=== PATIENT | male | born 1945 | race Caucasian/White ===

== ENCOUNTER 2017-05-01 11:35 | Inpatient (IN) | payer OTHER ==
[~2017-05-01] VITALS: Ht 157.5 cm; Wt 83.1 kg
[2017-05-01 11:53] VITALS: BP 138/77
[2017-05-01] MEDS ORDERED: PANTOPRAZOLE 40 MG INJ VIAL IVP ONE (12:40)
[2017-05-01] MEDS ORDERED: MONT10TA35 PO (12:44)
[2017-05-01] MEDS ORDERED: GABA300C PO (12:44)
[2017-05-01] MEDS ORDERED: FERR325E14 PO (12:44)
[2017-05-01] MEDS ORDERED: LISI-420 PO (12:44)
[2017-05-01] MEDS ORDERED: SIMV20TA1 PO (12:44)
[2017-05-01] MEDS ORDERED: CETI-32 PO (12:44)
[2017-05-01] MEDS ORDERED: ORE25 PO (12:44)
[2017-05-01] MEDS ORDERED: VOL25 PO (12:44)
[2017-05-01] MEDS ORDERED: SITA25TA3 PO (12:44)
[2017-05-01] MEDS ORDERED: DOXA2TAB1 PO (12:44)
[2017-05-01] MEDS ORDERED: ASPI81CT89 PO (12:44)
[2017-05-01] MEDS ORDERED: SUCR1TAB35 PO (12:44)
[2017-05-01] MEDS ORDERED: METF1000 PO (12:44)
[2017-05-01] MEDS ORDERED: PHEN-1438 PO (12:44)
[2017-05-01] MEDS ORDERED: ATEN50TA8 PO (12:44)
--- NOTE | 2017-05-01 12:52 | NUR ---
PT COMES IN WITH C/O BLACK STOOLS X1 WEEK; SENT BY PMD FOR GI BLEEDING, HGB 8.1 ABD SOFT, NT TO TOUCH. DENIES FEVERS/CHILLS, NO ABD PAIN. REG BM, DENIES DYSURIA. HX HTN, DM, HIGH CHOLESTEROL
[2017-05-01 13:15] LABS: BASOPHILS # (AUTO) 0.1 K/uL (0.00-0.22); BASOPHILS % (AUTO) 2.6 % (0.0-2.0); EOSINOPHILS # (AUTO) 0.1 K/uL (0-0.4); EOSINOPHILS % (AUTO) 1.6 % (0.0-4.0); HEMATOCRIT 23.4 % (36-52); HEMOGLOBIN 8.1 g/dL (12.0-18.0); LYMPHOCYTES % (AUTO) 18.7 % (20.5-51.1); MEAN CORPUSCULAR HEMOGLOBIN 34 pg (27-31); MEAN CORPUSCULAR HGB CONC 35 g/dL (33-37); MEAN CORPUSCULAR VOLUME 99 fL (80-94); MONOCYTES # (AUTO) 0.4 K/uL (0.8-1.0); MONOCYTES % (AUTO) 7.8 % (1.7-9.3); NEUTROPHILS # (AUTO) 3.8 K/uL (1.8-7.7); NEUTROPHILS % (AUTO) 69.3 % (42.2-75.2); PLATELET COUNT (AUTO) 134 K/uL (140-450); RED BLOOD CELL COUNT(AUTO) 2.37 MIL/uL (4.20-6.10); RED CELL DISTRIBUTION WIDTH 14.6 % (11.6-13.7); WHITE BLOOD COUNT (AUTO) 5.4 K/uL (4.8-10.8)
--- NOTE | 2017-05-01 13:21 | NUR ---
PT LAYING IN BED, NO CHANGE IN CONDITON. NO RECTAL BLEEDING NOTED
--- NOTE | 2017-05-01 13:23 | NUR ---
DR SANTOS AT BEDSIDE FOR RECTAL EXAM, HEM +
[2017-05-01 13:32] LABS: ALBUMIN 3.2 g/dL (3.4-5.0); ANION GAP 15.2 (8-16); ASPARTATE AMINOTRANSFERASE 43 U/L (15-37); CARBON DIOXIDE 24.6 mmol/L (21-32); CHLORIDE 107 mmol/L (98-107); CREATININE 0.8 mg/dL (0.7-1.3); GLUCOSE 108 mg/dL (74-106); POTASSIUM 3.8 mmol/L (3.5-5.1); SODIUM SERUM 143 mmol/L (136-145); TOTAL BILIRUBIN 0.3 mg/dL (0.0-1.0); UREA NITROGEN, BLOOD 21 mg/dL (7-18)
[2017-05-01 13:36] LABS: PROTHROMBIN TIME 11.6 secs (10.8-13.4)
[2017-05-01] MEDS: NACL 0.9% 1,000 ML IV SCH (14:14)
[2017-05-01] MEDS ORDERED: ONDANSETRON 4 MG/2 ML VIAL IVP PRN (14:15)
[2017-05-01] MEDS ORDERED: HYDROcodone/APAP 5/325 MG 1 TAB TAB PO PRN (14:15)
[2017-05-01] MEDS ORDERED: PANTOPRAZOLE 40 MG INJ VIAL IVP SCH (14:57)
[2017-05-01 15:40] VITALS: BP 127/74
--- NOTE | 2017-05-01 15:40 | NUR ---
PT AWAKE AND ORIENTED ARRIVED ON THE UNIT WITH 2 ER NURSES. INTRODUCED MYSELF AND UPDATED THE BOARD. PT IS PERSIAN SPEAKING. PT IS HERE FOR UPPER GI BLEED. BLOODY STOOLS AND UPPER ABD PAIN X 1 WEEK. PT IS AMBULATORY. AMBULATED FROM GURNEY IN THE HALLWAY TO THE BED. STEADY GAIT. IV ON L AC 20G NS AT 50ML/HR. ADMINISTERED TELE MONITOR, BROWN SOCKS, AND MRSA SCREENING. SKIN INTACT. PT IS CURRENTLY CLEAR LIQ DIET. DR. GRACE, GI CONSULT IN PLACE. V/S WITHIN NORMAL RANGE. DENIES PAIN. WILL CONTINUE TO MONITOR PT.
--- NOTE | 2017-05-01 15:53 | NUR ---
Patient will be admitted to care of DR HALL. Admited to [id number] Will go to room. Belongings list completed. Report to .
[2017-05-01] MEDS: GABAPENTIN 300 MG CAP PO SCH (17:08)
--- NOTE | 2017-05-01 17:30 | NUR ---
DR GRACE AND DR HALL IN TO CONSULT WITH PATIENT REGARDING ADMISSION AND EGD PROCEDURE, GRETCHEN YUN TRANSLATING FOR DOCTORS DURING VISIT, DR GRACE INFORMED PATIENT OF PROCEDURE AND CONSENT WAS SIGNED BY PATIENT. PATIENT IN UNDERSTANDING AND AGREEMENT OF PROCEDURE. EGD TO BE DONE TOMORROW AND PATIENT TO BE NPO AFTER MIDNIGHT.
[2017-05-01] MEDS ORDERED: DEXTROSE 50% 50 ML SYR IVP PRN (18:05)
[2017-05-01 18:45] LABS: FREE T4 (FREE THYROXINE) 0.98 ng/dL (0.76-1.46); THYROID STIMULATING HORMONE 1.95 uIU/mL (0.34-3.74)
[2017-05-01] MEDS: HYDROcodone/APAP 5/325 MG 1 TAB TAB PO PRN (18:55)
--- NOTE | 2017-05-01 19:25 | NUR ---
ENDORED REPORT TO MOTOCROSS RACER NURSE FOR CONTINUITY OF CARE. PATIENT ALERT AND ABLE TO MAKE NEEDS KNOWN. NO ACUTE DISTRESS.
--- NOTE | 2017-05-01 19:35 | NUR ---
RECEIVED REPORT FROM DAY SHIFT RN, PATIENT RESTING IN BED, NO S/S OF DISTRESS NOTED, RESPIRATION EVEN AND UNLABORED, IV PATENT AND INTACT, INFUSING NS AT 50ML/HR, CALL LIGHT WITHIN REACH, SAFETY MEASURE ENSURED, WILL CONTINUE TO MONITOR.
[2017-05-01 20:00] VITALS: BP 149/81
[2017-05-01] MEDS: BLOOD GLUCOSE MONITORING 1 DEV DEV FS SCH (20:39)
[2017-05-01] MEDS: PANTOPRAZOLE 40 MG INJ VIAL IVP SCH (20:40)
[2017-05-01] MEDS: LACTULOSE 20 GM/30 ML UDC PO SCH (20:40)
--- NOTE | 2017-05-01 20:46 | NUR ---
DUE MEDICATION GIVEN, PATIENT TOLERATED WELL. NO S/S OF DISTRESS NOTED, CALL LIGHT WITHIN REACH, SAFETY MEASURE ENSURED, WILL CONTINUE TO MONITOR.
--- NOTE | 2017-05-01 22:31 | NUR ---
NO CHANGE IN CONDITION, PATIENT IS SLEEPING, RESPIRATION EVEN AND UNLABORED, CALL LIGHT WITHIN REACH, SAFETY MEASURE ENSURED, WILL CONTINUE TO MONITOR.
--- NOTE | 2017-05-01 22:59 | NUR ---
TROP 0.099, PAGED DR. KOCH.
--- NOTE | 2017-05-01 23:14 | NUR ---
PAGED DR. KOCH AGAIN, WAITING FOR DR. KOCH TO CALL BACK.
--- NOTE | 2017-05-01 23:16 | NUR ---
MADE DR. KOCH AWARE THAT PATIENT TROP WENT UP FROM 0.[address] KOCH SAID," THAT'S OKAY."
[2017-05-01 23:47] VITALS: BP 139/75
--- NOTE | 2017-05-02 01:40 | NUR ---
PATIENT ASKED FOR PAIN MEDICATION, UPON ASSESSMENT, EPIGASTRIC PAIN 7/10, PATIENT IS NPO AFTER MIDNIGHT, ASKED CHARGE NURSE IF PATIENT COULD TAKE PO PAIN MEDICATION, CHARGE NURSE SAID IT'S OKAY WITH JUST A LITTLE BIT OF WATER. NORCO GIVEN ORDERED, CALL LIGHT WITHIN REACH, SAFETY MEASURE ENSURED, WILL CONTINUE TO MONITOR.
--- NOTE | 2017-05-02 03:13 | NUR ---
PATIENT IS SLEEPING, RESPIRATION EVEN AND UNLABORED, NO S/S OF DISTRESS NOTED, CALL LIGHT WITHIN REACH, SAFETY MEASURE ENSURED, WILL CONTINUE TO MONITOR.
[2017-05-02 03:19] LABS: APPEARANCE,URINE CLEAR (CLEAR); BILIRUBIN,URINE NEGATIVE (NEGATIVE); BLOOD, URINE NEGATIVE (NEGATIVE); COLOR,URINE YELLOW (YELLOW); LEUKOCYTE ESTERASE ,URINE NEGATIVE (NEGATIVE); NITRITE, URINE NEGATIVE (NEGATIVE); UGLUCOSE NEGATIVE (NEGATIVE)
[2017-05-02 04:00] VITALS: BP 149/83
--- NOTE | 2017-05-02 06:47 | NUR ---
BS 146, PATIENT RESTING IN BED, NO S/S OF DISTRESS NOTED, RESPIRATION EVEN AND UNLABORED, CALL LIGHT WITHIN REACH, SAFETY MEASURE ENSURED, WILL CONTINUE TO MONITOR.
[2017-05-02] MEDS: BLOOD GLUCOSE MONITORING 1 DEV DEV FS SCH ×4 (06:48→20:28)
[2017-05-02 07:20] LABS: BASOPHILS # (AUTO) 0.1 K/uL (0.00-0.22); BASOPHILS % (AUTO) 1.7 % (0.0-2.0); EOSINOPHILS # (AUTO) 0.1 K/uL (0-0.4); HEMATOCRIT 23.3 % (36-52); LYMPHOCYTES # (AUTO) 0.9 K/uL (2.0-11.5); LYMPHOCYTES % (AUTO) 20.8 % (20.5-51.1); MEAN CORPUSCULAR HEMOGLOBIN 35 pg (27-31); MEAN CORPUSCULAR HGB CONC 34 g/dL (33-37); MEAN CORPUSCULAR VOLUME 101 fL (80-94); MONOCYTES # (AUTO) 0.4 K/uL (0.8-1.0); MONOCYTES % (AUTO) 10.5 % (1.7-9.3); NEUTROPHILS # (AUTO) 2.6 K/uL (1.8-7.7); PLATELET COUNT (AUTO) 117 K/uL (140-450); RED BLOOD CELL COUNT(AUTO) 2.31 MIL/uL (4.20-6.10); RED CELL DISTRIBUTION WIDTH 14.9 % (11.6-13.7); WHITE BLOOD COUNT (AUTO) 4.1 K/uL (4.8-10.8)
--- NOTE | 2017-05-02 07:23 | NUR ---
ENDORSED PLAN OF CARE TO DAY SHIFT RN, PATIENT IS IN STABLE CONDITION, NO S/S OF DISTRESS NOTED.
[2017-05-02 07:24] LABS: ANION GAP 14.4 (8-16); CHLORIDE 106 mmol/L (98-107); CREATININE 0.8 mg/dL (0.7-1.3); GLUCOSE 144 mg/dL (74-106); POTASSIUM 3.4 mmol/L (3.5-5.1); SODIUM SERUM 141 mmol/L (136-145); UREA NITROGEN, BLOOD 13 mg/dL (7-18)
--- NOTE | 2017-05-02 07:30 | NUR ---
RECEIVED PT REPORT FROM TRAVEL RN RN, PATIENT RESTING IN BED, NO S/S OF DISTRESS NOTED, RESPIRATION EVEN AND UNLABORED, IV CATH NOTED TO THE LEFT AC, PATENT AND INTACT, INFUSING NS AT 50ML/HR, DENIES PAIN AT THIS TIME. CALL LIGHT WITHIN REACH, SAFETY MEASURE ENSURED, WILL CONTINUE TO MONITOR.
[2017-05-02 08:00] VITALS: BP 162/89
[2017-05-02] MEDS: PANTOPRAZOLE 40 MG INJ VIAL IVP SCH ×2 (08:20→21:11)
[2017-05-02] MEDS: LISINOPRIL 20 MG TAB PO SCH (08:20)
[2017-05-02] MEDS: ATENOLOL 50 MG TAB PO SCH (08:20)
[2017-05-02] MEDS: LACTULOSE 20 GM/30 ML UDC PO SCH ×2 (08:21→21:11)
[2017-05-02] MEDS: SENNA 8.6 MG TAB PO SCH ×3 (08:21→17:44)
[2017-05-02] MEDS: GABAPENTIN 300 MG CAP PO SCH ×3 (08:21→17:44)
--- NOTE | 2017-05-02 08:51 | NUR ---
PATIENT HAS BEEN SCREENED AND CATEGORIZED MODERATE NUTRITION RISK. PATIENT WILL BE SEEN WITHIN 3-5 DAYS OF ADMISSION. 05/03/17-05/05/[address]
--- NOTE | 2017-05-02 09:15 | NUR ---
NOTIFIED DR HALL ABOUT TROP 0.107. DR HALL ORDERED TO HAVE DR SAINZ FOR CONSULT.
--- NOTE | 2017-05-02 10:10 | NUR ---
NOTIFIED DR HALL THAT HE HAS TO CALL DR SAINZ DIRECTLY. DR HALL ORDERED ECHO AND EKG.
[2017-05-02] MEDS ORDERED: diphenhydrAMINE 50 MG/ML VIAL ONE (10:12)
[2017-05-02] MEDS ORDERED: MIDAZOLAM 2 MG/2 ML VIAL ONE (10:12)
[2017-05-02] MEDS ORDERED: fentaNYL 0.05 MG/ML VIAL ONE (10:12)
[2017-05-02] MEDS: NACL 0.9% 1,000 ML IV SCH (10:14)
[2017-05-02] MEDS ORDERED: POTASSIUM CHL 40 MEQ/ D5-1/2NS 1,000 ML IV SCH (11:00)
--- NOTE | 2017-05-02 11:25 | NUR ---
PT IS BACK FROM OR, VITAL SIGNS TAKEN. SO S/S OF DISTRESS AT THIS TIME. WILL CONTINUE TO MONITOR. THE AEROSPACE CONTROL AND WARNING SYSTEMS IS STARTING DOING ECHOCARDIOGRAM.
--- NOTE | 2017-05-02 11:25 | NUR ---
EGD CANCELLED BY DR GRACE. PER , PT NEEDS CARDIAC WORKUP FIRST.
[2017-05-02 12:00] VITALS: BP 148/79
[2017-05-02] MEDS: DOXAZOSIN 2 MG TAB PO SCH (12:12)
[2017-05-02] MEDS ORDERED: POTASSIUM CHLORIDE 40 MEQ, LIDOCAINE 1% 25 MG in NACL 0.9% 250 ML IV SCH (12:30)
--- NOTE | 2017-05-02 13:05 | NUR ---
CALLED , MADE HIM AWARE OF RESULT OF THE FOURTH TROPONIN DRAW AND BNP. REQUESTED A DIET ORDER FROM DR HALL.
--- NOTE | 2017-05-02 13:35 | NUR ---
CALLED PHARMACY ABOUT [facility] DELIVERY. WILL DELIVER SOON.
--- NOTE | 2017-05-02 14:15 | NUR ---
CM NOTE INITIAL REVIEW FAXED TO [facility] (FAX# [phone]) AND [employer] (FAX# [phone], C: [phone])
[2017-05-02 15:13] LABS: FERRITIN 47 ng/mL (30-400)
[2017-05-02 16:00] VITALS: BP 137/77
--- NOTE | 2017-05-02 17:20 | NUR ---
PT HAS BEEN SEEN BY DR. SAINZ. DR SAINZ STATED THAT NO HEART ATTACK, DO NOT GIVE ANY ASPIRIN OR HEPARIN. DR SAINZ HAS SPOKE TO DR GRACE ABOUT POSSIBLE EGD FOR TOMORROW.
[2017-05-02] MEDS: INSULIN LISPRO SLIDING SCALE 100 UNITS/ML VIAL SUBQ PRN (18:53)
--- NOTE | 2017-05-02 19:32 | NUR ---
RECEIVED REPORT FROM DAY SHIFT RN, PATIENT RESTING IN BED, NO S/S OF DISTRESS NOTED, RESPIRATION EVEN AND UNLABORED, IV PATENT AND INTACT, INFUSING NS AT 50ML/HR, EDUCATED PATIENT THAT DOCTOR ORDERED STOOL SAMPLE, PATIENT VERBALIZED UNDERSTANDING, CALL LIGHT WITHIN REACH, SAFETY MEASURE ENSURED, WILL CONTINUE TO MONITOR.
--- NOTE | 2017-05-02 19:35 | NUR ---
ENDORSED PT TO OUTBOARD SYSTEM OPERATOR NURSE. PT IS IN STABLE CONDITION.
[2017-05-02 19:37] VITALS: BP 131/70
[2017-05-02] MEDS ORDERED: LACTULOSE 20 GM/30 ML UDC PO SCH (21:00)
[2017-05-02] MEDS: SIMVASTATIN 20 MG TAB PO SCH (21:11)
[2017-05-02] MEDS: HYDROcodone/APAP 5/325 MG 1 TAB TAB PO PRN (21:12)
--- NOTE | 2017-05-02 21:18 | NUR ---
DUE MEDICATION GIVEN, PATIENT TOLERATED WELL, NO S/S OF DISTRESS NOTED, RESPIRATION EVEN AND UNLABORED, CALL LIGHT WITHIN REACH, SAFETY MEASURE ENSURED, WILL CONTINUE TO MONITOR.
--- NOTE | 2017-05-02 21:54 | NUR ---
PATIENT HAS NO BOWEL MOVEMENT, NO STOOL COLLECTED YET.
[2017-05-02 23:42] VITALS: BP 124/58
--- NOTE | 2017-05-02 23:55 | NUR ---
PATIENT WAS SLEEPING, EASY TO AROUSE, VITAL SIGNS STABLE, STILL NO BOWEL MOVEMENT YET, CALL LIGHT WITHIN REACH, SAFETY MEASURE ENSURED, WILL CONTINUE TO MONITOR.
--- NOTE | 2017-05-03 00:58 | NUR ---
STOOL COLLECTED, SENT TO LAB.
--- NOTE | 2017-05-03 02:12 | NUR ---
NO CHANGE IN CONDITION, PATIENT IS SLEEPING, RESPIRATION EVEN AND UNLABORED, CALL LIGHT WITHIN REACH, SAFETY MEASURE ENSURED, WILL CONTINUE TO MONITOR.
[2017-05-03 04:00] VITALS: BP 124/77
--- NOTE | 2017-05-03 04:04 | NUR ---
PATIENT IS SLEEPING, RESPIRATION EVEN AND UNLABORED, CALL LIGHT WITHIN REACH, SAFETY MEASURE ENSURED, WILL CONTINUE TO MONITOR.
[2017-05-03] MEDS: NACL 0.9% 1,000 ML IV SCH (05:58)
--- NOTE | 2017-05-03 06:26 | NUR ---
BS 146, PATIENT RESTING IN BED, NO S/S OF DISTRESS NOTED, RESPIRATION EVEN AND UNLABORED, CALL LIGHT WITHIN REACH, SAFETY MEASURE ENSURED, WILL CONTINUE TO MONITOR.
[2017-05-03] MEDS: BLOOD GLUCOSE MONITORING 1 DEV DEV FS SCH ×4 (06:38→21:03)
--- NOTE | 2017-05-03 07:19 | NUR ---
ENDORSED PLAN OF CARE TO DAY SHIFT RN, PATIENT RESTING IN BED, IN STABLE CONDITION, NO S/S OF DISTRESS.
--- NOTE | 2017-05-03 07:20 | NUR ---
RECEIVED REPORT FROM PARTS CONTROL CLERK NURSE. PATIENT LYING IN BED SLEEPING, AROUSABLE BY VOICE. NO DISTRESS NOTED. DENIES ANY PAIN AT THIS TIME. AAOX4, CALM, COOPERATIVE, SKIN COLOR APPROPRIATE TO ETHNICITY, WARM TO TOUCH. PATIENT ABLE TO AMBULATE TO BATHROOM AND BACK TO BED WITH STEADY GAIT. LUNGS CTA ON ALL LOBES. ABDOMEN SOFT, NON-DISTENDED. IV SITE INTACT, PATENT, AND INFUSING PER ORDERS. REVIEWED PLAN OF CARE WITH PATIENT. PATIENT VERBALIZED UNDERSTANDING. SAFETY MEASURES IN PLACE, CALL LIGHT WITHIN REACH. WILL CONTINUE TO MONITOR.
[2017-05-03 08:00] VITALS: BP 152/74
[2017-05-03] MEDS: LISINOPRIL 20 MG TAB PO SCH (09:00)
[2017-05-03] MEDS: SENNA 8.6 MG TAB PO SCH (09:56)
[2017-05-03] MEDS: PANTOPRAZOLE 40 MG INJ VIAL IVP SCH ×2 (09:56→21:00)
[2017-05-03] MEDS: LACTULOSE 20 GM/30 ML UDC PO SCH ×2 (09:56→20:59)
[2017-05-03] MEDS: DOXAZOSIN 2 MG TAB PO SCH (09:56)
[2017-05-03] MEDS: GABAPENTIN 300 MG CAP PO SCH ×3 (09:57→18:10)
[2017-05-03] MEDS: ATENOLOL 50 MG TAB PO SCH (09:57)
--- NOTE | 2017-05-03 10:00 | NUR ---
PATIENT SITTING IN BED WATCHING TV. NO DISTRESS NOTED. DENIES ANY PAIN. SCHEDULED MEDICATIONS DUE GIVEN. PATIENT ASKING FOR WHAT TIME EGD IS GOING TO BE DONE TODAY. TOLD PATIENT THAT I WILL ASK DR. GRACE. SAFETY MEASURES IN PLACE, CALL LIGHT WITHIN REACH. WILL CONTINUE TO MONITOR.
--- NOTE | 2017-05-03 10:30 | NUR ---
DR. HALL AT BEDSIDE REVIEWING PLAN OF CARE WITH PATIENT. WILL CONTINUE TO MONITOR.
[2017-05-03 10:49] LABS: BASOPHILS # (AUTO) 0.1 K/uL (0.00-0.22); BASOPHILS % (AUTO) 1.9 % (0.0-2.0); EOSINOPHILS # (AUTO) 0.1 K/uL (0-0.4); EOSINOPHILS % (AUTO) 2.5 % (0.0-4.0); HEMATOCRIT 25.6 % (36-52); HEMOGLOBIN 8.7 g/dL (12.0-18.0); LYMPHOCYTES # (AUTO) 0.8 K/uL (2.0-11.5); LYMPHOCYTES % (AUTO) 16.2 % (20.5-51.1); MEAN CORPUSCULAR HEMOGLOBIN 34 pg (27-31); MEAN CORPUSCULAR HGB CONC 34 g/dL (33-37); MEAN CORPUSCULAR VOLUME 101 fL (80-94); MONOCYTES # (AUTO) 0.3 K/uL (0.8-1.0); MONOCYTES % (AUTO) 7.3 % (1.7-9.3); NEUTROPHILS # (AUTO) 3.5 K/uL (1.8-7.7); NEUTROPHILS % (AUTO) 72.1 % (42.2-75.2); PLATELET COUNT (AUTO) 130 K/uL (140-450); RED BLOOD CELL COUNT(AUTO) 2.53 MIL/uL (4.20-6.10); RED CELL DISTRIBUTION WIDTH 15.5 % (11.6-13.7); WHITE BLOOD COUNT (AUTO) 4.8 K/uL (4.8-10.8)
[2017-05-03 11:06] LABS: CARBON DIOXIDE 24.5 mmol/L (21-32); CHLORIDE 105 mmol/L (98-107); CREATININE 0.9 mg/dL (0.7-1.3); GLUCOSE 167 mg/dL (74-106); POTASSIUM 3.5 mmol/L (3.5-5.1); SODIUM SERUM 140 mmol/L (136-145); UREA NITROGEN, BLOOD 8 mg/dL (7-18)
--- NOTE | 2017-05-03 12:00 | NUR ---
DR. GRACE ON MST UNIT. ASK DR. GRACE WHAT TIME HE WAS GOING TO PERFORM THE EGD ON PATIENT BECAUSE THE PATIENT IS GETTING AGITATED NOT KNOWING WHAT TIME DUE TO NPO STATUS. DR. GRACE VERBALLY SAID THAT IN ABOUT 1 HOUR HE WILL PERFORM THE EGD FOR THE PATIENT. NOTIFIED PATIENT, PATIENT VERBALIZED UNDERSTANDING. CONTINUES TO BE IN AGITATED MOOD BECAUSE EGD PROCEDURE IS TAKING TOO LONG AND HE HAS NOT EATEN IN TWO DAYS PER PATIENT REPORTS. WILL CONTINUE TO MONITOR.
--- NOTE | 2017-05-03 12:25 | NUR ---
CM NOTE CONCURRENT REVIEW FAXED TO [facility] (FAX# [phone]) AND [facility] (FAX# [phone], C: [phone])
--- NOTE | 2017-05-03 13:20 | NUR ---
OR NURSE ON UNIT TO TAKE PATIENT DOWN FOR EGD. REPORT GIVEN TO OR NURSE. WILL CONTINUE TO MONITOR PATIENT ONCE BACK ON UNIT.
[2017-05-03] MEDS ORDERED: fentaNYL 0.05 MG/ML VIAL ONE (13:27)
[2017-05-03] MEDS ORDERED: MIDAZOLAM 2 MG/2 ML VIAL ONE (13:28)
[2017-05-03] MEDS ORDERED: diphenhydrAMINE 50 MG/ML VIAL ONE (13:28)
--- NOTE | 2017-05-03 14:13 | NUR ---
PATIENT BACK ON MST UNIT FROM EGD. NO DISTRESS NOTED. IN STABLE CONDITION. DENIES ANY PAIN AT THIS TIME. GAVE PATIENT SANDWICH AND WATER PER DIET CHANGED TO CARDIAC. V/S STABLE. SAFETY MEASURES IN PLACE, CALL LIGHT WITHIN REACH. WILL CONTINUE TO MONITOR.
[2017-05-03 14:15] VITALS: BP 102/61
--- NOTE | 2017-05-03 15:30 | NUR ---
PATIENT LYING IN BED SLEEPING, AROUSABLE BY VOICE. EXPLAINED TO PATIENT ON PROCEDURE FOR CT ABDOMEN/PELVIS WITH CONTRAST TO BE DONE LATER TODAY USING BLUE TRANSLATION PHONE WITH PROCESS WORKER #[id number]. ANSWERED ALL OF PATIENT QUESTIONS REGARDING THE PROCEDURE. PATIENT VERBALIZED COMPLETE UNDERSTANDING. SAFETY MEASURES IN PLACE, CALL LIGHT WITHIN REACH. WILL CONTINUE TO MONITOR.
[2017-05-03 16:00] VITALS: BP 129/65
[2017-05-03] MEDS ORDERED: PANT40EC PO (16:10)
[2017-05-03] MEDS ORDERED: MUPIROCIN 2% OINT 22 GM TUBE TP SCH (17:04)
[2017-05-03] MEDS ORDERED: CHLORHEXADINE GLUC 2% CLOTH TP SCH (17:05)
[2017-05-03] MEDS: FERROUS SULFATE 325 MG TABEC PO SCH (18:09)
[2017-05-03] MEDS: PROPRANOLOL 20 MG TAB PO SCH (18:10)
--- NOTE | 2017-05-03 18:14 | NUR ---
PATIENT LYING IN BED COMFORTABLY. NO DISTRESS NOTED. DENIES ANY PAIN AT THIS TIME. SCHEDULED MEDICATIONS DUE GIVEN. SAFETY MEASURES IN PLACE, CALL LIGHT WITHIN REACH. WILL CONTINUE TO MONITOR.
--- NOTE | 2017-05-03 18:30 | NUR ---
PATIENT LYING IN BED SLEEPING, AROUSABLE BY VOICE. PATIENT NOTIFIED THAT HE IS TO GO HOME TODAY AFTER CT OF ABD/PELVIS WITH CONTRAST IS COMPLETED BY RADIOLOGY TODAY. PATIENT VERBALIZED UNDERSTANDING. SAFETY MEASURES IN PLACE, CALL LIGHT WITHIN REACH. WILL CONTINUE TO MONITOR.
[2017-05-03 18:36] LABS: BASOPHILS # (AUTO) 0.1 K/uL (0.00-0.22); BASOPHILS % (AUTO) 1.5 % (0.0-2.0); EOSINOPHILS # (AUTO) 0.1 K/uL (0-0.4); HEMATOCRIT 22.7 % (36-52); HEMOGLOBIN 7.5 g/dL (12.0-18.0); LYMPHOCYTES # (AUTO) 0.6 K/uL (2.0-11.5); LYMPHOCYTES % (AUTO) 13.5 % (20.5-51.1); MEAN CORPUSCULAR HEMOGLOBIN 33 pg (27-31); MEAN CORPUSCULAR HGB CONC 33 g/dL (33-37); MEAN CORPUSCULAR VOLUME 100 fL (80-94); MONOCYTES # (AUTO) 0.5 K/uL (0.8-1.0); NEUTROPHILS # (AUTO) 2.9 K/uL (1.8-7.7); PLATELET COUNT (AUTO) 109 K/uL (140-450); RED BLOOD CELL COUNT(AUTO) 2.27 MIL/uL (4.20-6.10); RED CELL DISTRIBUTION WIDTH 15.7 % (11.6-13.7); WHITE BLOOD COUNT (AUTO) 4.2 K/uL (4.8-10.8)
--- NOTE | 2017-05-03 19:30 | NUR ---
GAVE REPORT TO SAUSAGE CANNER NURSE FOR CONTINUITY OF CARE. PATIENT IN STABLE CONDITION.
[2017-05-03 20:00] VITALS: BP 148/76
[2017-05-03] MEDS: SIMVASTATIN 20 MG TAB PO SCH (21:00)
--- NOTE | 2017-05-03 21:06 | NUR ---
PATIENT IN STABLE CONDITION AND OFF THE UNIT TO DO THE CT.
--- NOTE | 2017-05-03 21:30 | NUR ---
INTELLIGENCE OPERATIONS SPECIALIST CALLED ME SAID THERE IS NO PHYSICIAN SIGNATURE ON THE CONSENT, AND CT COULD NOT BE DONE AT THIS TIME. INFORMED CHARGE NURSE, AND WILL CALL DR. HALL.
--- NOTE | 2017-05-03 21:50 | NUR ---
PAGED DR. HALL, DR. KOCH BALER OPERATOR. INFORMED DR. KOCH THAT CT ABD/PELVIS WITH CONTRAST WAS NOT DONE, RECEIVED ADDITIONAL ORDER FROM DR. KOCH THAT HOLD DISCHARGE ORDER FOR TONIGHT, CAN PERFORM CT ABD/PELVIS WITH CONTRAST TOMORROW, AND PATIENT CAN EAT, BUT KEEP NPO AFTER MIDNIGHT.
--- NOTE | 2017-05-03 22:05 | NUR ---
PATIENT IS BACK TO HIS ROOM, NO S/S OF DISTRESS NOTED, RESPIRATION EVEN AND UNLABORED, CALL LIGHT WITHIN REACH, SAFETY MEASURE ENSURED, WILL CONTINUE TO MONITOR.
--- NOTE | 2017-05-03 22:40 | NUR ---
USE FISH AND GAME WARDEN [id number], TOLD PATIENT THAT BECAUSE THERE IS NO PHYSICIAN SIGNATURE ON THE CONSENT, THE CT COULD NOT BE PERFORMED, AND DOCTOR WANTS TO KEEP HIM IN THE HOSPITAL UNTIL THE CT ABD/PELVIS WITH CONTRAST DONE, AND DOCTOR SAID IT'S OKAY TO EAT FOOD, BUT NEED TO BE NPO AFTER MIDNIGHT. PATIENT VERBALIZED UNDERSTANDING BUT UPSET. OFFERED HIM SOME SNACKS WHILE WAITING FOR THE FOOD, PATIENT REFUSED AND SAID," I WILL WAIT FOR THE FOOD."
[2017-05-04] VITALS: BP 131/70
--- NOTE | 2017-05-04 00:33 | NUR ---
PATIENT WAS SLEEPING, EASY TO AROUSE, RESPIRATION EVEN AND UNLABORED, NO S/S OF DISTRESS NOTED, VITAL SIGNS STABLE, CALL LIGHT WITHIN REACH, SAFETY MEASURE ENSURED, WILL CONTINUE TO MONITOR.
--- NOTE | 2017-05-04 02:34 | NUR ---
NO CHANGE IN CONDITION, PATIENT WAS SLEEPING, EASY TO AROUSE, RESPIRATION EVEN AND UNLABORED, NO S/S OF DISTRESS NOTED, CALL LIGHT WITHIN REACH, SAFETY MEASURE ENSURED, WILL CONTINUE TO MONITOR.
[2017-05-04 04:00] VITALS: BP 135/74
--- NOTE | 2017-05-04 04:13 | NUR ---
PATIENT WAS SLEEPING, EASY TO AROUSE, NO S/S OF DISTRESS NOTED, RESPIRATION EVEN AND UNLABORED, CALL LIGHT WITHIN REACH, SAFETY MEASURE ENSURED, WILL CONTINUE TO MONITOR.
--- NOTE | 2017-05-04 06:02 | NUR ---
PATIENT IS AWAKE AND RESTING IN BED, BS 125, PATIENT STATED," WHEN CAN I GO HOME." TOLD PATIENT THAT AFTER THE CT ABD/PELVIS, THE DOCTOR WILL LET YOU GO HOME WHEN THE DOCTOR THINK YOU ARE STABLE TO GO HOME. PATIENT SAID," MAYBE I SHOULD SEE MY SALES COMPENSATION ANALYST." ASKED WHAT WAS THE REASON, PATIENT DID NOT ANSWER.
[2017-05-04] MEDS: BLOOD GLUCOSE MONITORING 1 DEV DEV FS SCH ×3 (06:33→17:04)
--- NOTE | 2017-05-04 07:30 | NUR ---
ENDORSED PLAN OF CARE TO DAY SHIFT RN, PATIENT IS IN STABLE CONDITION, NO S/S OF DISTRESS.
--- NOTE | 2017-05-04 07:30 | NUR ---
RECEIVED REPORT FROM RADIATION CONTROL SPECIALIST NURSE. PT IS AAOX4. NO DISTRESS NOTED. DENIES ANY PAIN AT THIS TIME. IV NOTED TO THE LEFT AC, 20G, INTACT, PATENT, AND INFUSING PER ORDERS. REVIEWED PLAN OF CARE WITH PATIENT. PATIENT VERBALIZED UNDERSTANDING. SAFETY MEASURES IN PLACE, CALL LIGHT WITHIN REACH. WILL CONTINUE TO MONITOR.
[2017-05-04 08:00] VITALS: BP 142/73
[2017-05-04 08:16] LABS: HEPATITIS B SURFACE ANTIGEN Negative (Negative)
--- NOTE | 2017-05-04 08:40 | NUR ---
PT HAD BM, SOFT FORMED, BROWN STOOL. NO BLOOD NOTED.
[2017-05-04] MEDS ORDERED: MUPIROCIN 2% OINT 22 GM TUBE TP SCH ×2 (09:00)
[2017-05-04] MEDS ORDERED: CHLORHEXADINE GLUC 2% CLOTH TP SCH ×2 (09:00)
[2017-05-04] MEDS: LISINOPRIL 20 MG TAB PO SCH (09:21)
[2017-05-04] MEDS: GABAPENTIN 300 MG CAP PO SCH ×3 (09:21→16:50)
[2017-05-04] MEDS: FERROUS SULFATE 325 MG TABEC PO SCH ×2 (09:21→16:49)
[2017-05-04] MEDS: PROPRANOLOL 20 MG TAB PO SCH ×3 (09:21→17:03)
[2017-05-04] MEDS: LACTULOSE 20 GM/30 ML UDC PO SCH (09:22)
[2017-05-04] MEDS: PANTOPRAZOLE 40 MG INJ VIAL IVP SCH (09:22)
--- NOTE | 2017-05-04 09:50 | NUR ---
PT STATED THE IV CATH BOTHERS HIM. IV CATH ON THE LEFT AC DC'ED, TIP INTACT. NEW IV CATH 20G PUT IN ON THE RIGHT HAND FOR CT WITH CONTRAST. PT TOLERATED WELL.
[2017-05-04 10:53] LABS: ANION GAP 15.4 (8-16); CARBON DIOXIDE 24.1 mmol/L (21-32); CHLORIDE 105 mmol/L (98-107); CREATININE 0.9 mg/dL (0.7-1.3); GLUCOSE 184 mg/dL (74-106); POTASSIUM 3.5 mmol/L (3.5-5.1); SODIUM SERUM 141 mmol/L (136-145); UREA NITROGEN, BLOOD 9 mg/dL (7-18)
[2017-05-04 12:00] VITALS: BP 138/74
[2017-05-04] MEDS ORDERED: NACL 0.9% 250 ML IV SCH ×2 (12:00→15:00)
--- NOTE | 2017-05-04 13:30 | NUR ---
PT WENT TO RADIOLOGY FOR CT ABD/PELVIS. PT TRANSPORTED BY WHEELCHAIR. NO S/S OF DISTRESS NOTED.
--- NOTE | 2017-05-04 13:31 | NUR ---
05/04/17 RD INITIAL ASSESSMENT COMPLETED PLEASE REFER TO NUTRITION ASSESSMENT UNDER CARE ACTIVITY FOR ESTIMATED NEEDS. Recommendations: Continue Cardiac diet as tolerated. RD will follow up in 3-5days as moderate risk. Reina Fernandez RD, [facility]
--- NOTE | 2017-05-04 14:20 | NUR ---
PT IS BACK TO THE UNIT. PT IS IN STABLE CONDITION. IVF OF NS 250ML ADMINISTERED.
[2017-05-04 16:00] VITALS: BP 141/80
[2017-05-04] MEDS: INSULIN LISPRO SLIDING SCALE 100 UNITS/ML VIAL SUBQ PRN (17:22)
[2017-05-04 18:00] LABS: BASOPHILS # (AUTO) 0.1 K/uL (0.00-0.22); EOSINOPHILS # (AUTO) 0.2 K/uL (0-0.4); HEMATOCRIT 24.9 % (36-52); HEMOGLOBIN 8.7 g/dL (12.0-18.0); LYMPHOCYTES # (AUTO) 0.9 K/uL (2.0-11.5); MEAN CORPUSCULAR HEMOGLOBIN 34 pg (27-31); MEAN CORPUSCULAR HGB CONC 35 g/dL (33-37); MEAN CORPUSCULAR VOLUME 99 fL (80-94); MONOCYTES # (AUTO) 0.5 K/uL (0.8-1.0); NEUTROPHILS # (AUTO) 3.5 K/uL (1.8-7.7); PLATELET COUNT (AUTO) 147 K/uL (140-450); RED BLOOD CELL COUNT(AUTO) 2.53 MIL/uL (4.20-6.10); RED CELL DISTRIBUTION WIDTH 15.6 % (11.6-13.7); WHITE BLOOD COUNT (AUTO) 5.2 K/uL (4.8-10.8)
--- NOTE | 2017-05-04 18:00 | NUR ---
PT DISCHARGED PER MD ORDER. PT DENIES ANY PAIN, NAUSEA AND VOMITING. DISCHARGE INSTRUCTIONS AND MEDICATION TEACHING GIVEN. PT VERBALIZED UNDERSTANDING. MADE PT AWARE THAT HE NEEDS TO MAKE AN APPOINTMENT WITH HIS PCP WITHIN 1-2 WEEKS AND HE NEEDS REFERRAL FOR SUPREME COURT JUDGE AND GI SPECIALIST. NO S/S OF ACUTE DISTRESS AT THIS TIME. IV DC'D, TIP INTACT, PRESSURE APPLIED. PT LEFT IN STABLE CONDITION AND WITH ALL HIS BELONGINGS. WALKED PT TO THE LOBBY.
--- NOTE | 2017-05-04 18:00 | NUR ---
CT RESULTS PROVIDED TO THE PT.
[2017-05-07 09:21] LABS: FERRITIN 64 ng/mL (30 - 400)
== END 2017-05-04 18:00 | disposition home or self-care (01) | DRG 378 ==
LOC: MED 11:35 → MTU 14:29
PROVIDERS: ADMIT Hospitalist; ATTEND Hospitalist
PROC: 0DB68ZX Excision of Stomach, Via Natural or Artificial Opening Endoscopic, Diagnostic (ICD-10-PCS; principal; 2017-05-03 15:10)
DX: K25.4 Chronic or unspecified gastric ulcer with hemorrhage (principal); K76.6 Portal hypertension; I24.8 Other forms of acute ischemic heart disease; E11.9 Type 2 diabetes mellitus without complications; D50.9 Iron deficiency anemia, unspecified; E78.00 Pure hypercholesterolemia, unspecified; I85.10 Secondary esophageal varices without bleeding; K74.60 Unspecified cirrhosis of liver; G89.29 Other chronic pain; I25.10 Atherosclerotic heart disease of native coronary artery without angina pectoris; M54.9 Dorsalgia, unspecified; I10 Essential (primary) hypertension; K64.4 Residual hemorrhoidal skin tags; K43.9 Ventral hernia without obstruction or gangrene; E78.5 Hyperlipidemia, unspecified; K31.89 Other diseases of stomach and duodenum; T39.395A Adverse effect of other nonsteroidal anti-inflammatory drugs [NSAID], initial encounter; N40.0 Benign prostatic hyperplasia without lower urinary tract symptoms; M19.90 Unspecified osteoarthritis, unspecified site; E87.6 Hypokalemia; Z79.1 Long term (current) use of non-steroidal anti-inflammatories (NSAID); Z79.82 Long term (current) use of aspirin; Z88.8 Allergy status to other drugs, medicaments and biological substances; Z98.41 Cataract extraction status, right eye; Z79.899 Other long term (current) drug therapy; Z86.73 Personal history of transient ischemic attack (TIA), and cerebral infarction without residual deficits; Y92.89 Other specified places as the place of occurrence of the external cause
CPT/HCPCS: 36415; 71045; 80048; 80053; 81003; 82272; 82607; 82728; 82948; 83540; 83880; 84100; 84439; 84443; 84484; 85025; 85610; 85730; 86677; 86704; 86706; 86708; 86709; 86803; 86886; 86900; 86901; 87081; 87340; 93005; 96374; 99285; C9113; J1200; J1815; J2001; J2250; J3010; J3480; J7030; Q0092; Q9967